=== PATIENT | female | born 1950 | race Caucasian/White ===

== ENCOUNTER 2022-08-06 07:29 | Inpatient (IN) ==
--- NOTE | 2022-07-21 16:27 | PAT Medication Instructions ---
Medication Instructions Date of Service July 21, 2022 Home Medications atorvastatin 40 mg tablet 40 mg PO QAM latanoprost 0.005 % eye drops 1 drp ophthalmic (eye) HS lutein 20 mg capsule 20 mg PO QAM metformin 500 mg tablet 500 mg PO QAM Lactobacillus acidophilus 10 billion cell capsule (Probiotic) 10,000 mmu cells PO QAM calcium carb-ergocalciferol (vit D2) 600 mg calcium-200 unit tablet 1 tab PO QAM albuterol sulfate 90 mcg/actuation aerosol inhaler 1 puff inhalation Q4H PRN Shortness Of Breath aspirin 81 mg tablet,delayed release (Anthony Low Dose Aspirin) 81 mg PO QAM cyclobenzaprine 10 mg tablet 10 mg PO TID PRN muscle spasms fluticasone propionate 50 mcg/actuation nasal spray,suspension 2 spray intranasal QAM losartan 50 mg-hydrochlorothiazide 12.5 mg tablet 1 tab PO QAM fish, borage, flaxseed oils-omega 3,6,9 comb no.1 1,200 mg capsule ([place] 3-6-9) 1 cap PO QAM ipratropium bromide 21 mcg (0.03 %) nasal spray 1 - 2 spray intranasal BID PRN allergies pantoprazole 40 mg tablet,delayed release 40 mg PO BID ASK your prescriber and surgeon aspirin 81 mg tablet,delayed release (Anthony Low Dose Aspirin) 81 mg PO QAM STOP taking 2 weeks before surgery (or as soon as possible if surgery is within 2 weeks) lutein 20 mg capsule 20 mg PO QAM fish, borage, flaxseed oils-omega 3,6,9 comb no.1 1,200 mg capsule ([place] 3-6-9) 1 cap PO QAM DO NOT take the morning of surgery metformin 500 mg tablet 500 mg PO QAM Lactobacillus acidophilus 10 billion cell capsule (Probiotic) 10,000 mmu cells PO QAM calcium carb-ergocalciferol (vit D2) 600 mg calcium-200 unit tablet 1 tab PO QAM cyclobenzaprine 10 mg tablet 10 mg PO TID PRN muscle spasms losartan 50 mg-hydrochlorothiazide 12.5 mg tablet 1 tab PO QAM Take morning of surgery With a small sip of water, OTHERWISE NOTHING TO EAT OR DRINK AFTER MIDNIGHT: atorvastatin 40 mg tablet 40 mg PO QAM albuterol sulfate 90 mcg/actuation aerosol inhaler 1 puff inhalation Q4H PRN Shortness Of Breath (use if needed; please bring rescue inhaler with you to hospital day of surgery if possible) fluticasone propionate 50 mcg/actuation nasal spray,suspension 2 spray intranasal QAM ipratropium bromide 21 mcg (0.03 %) nasal spray 1 - 2 spray intranasal BID PRN allergies (if needed) pantoprazole 40 mg tablet,delayed release 40 mg PO BID Take evening before surgery latanoprost 0.005 % eye drops 1 drp ophthalmic (eye) HS albuterol sulfate 90 mcg/actuation aerosol inhaler 1 puff inhalation Q4H PRN Shortness Of Breath (if needed) cyclobenzaprine 10 mg tablet 10 mg PO TID PRN muscle spasms (if needed) ipratropium bromide 21 mcg (0.03 %) nasal spray 1 - 2 spray intranasal BID PRN allergies (if needed) pantoprazole 40 mg tablet,delayed release 40 mg PO BID Other Notes If you have any questions please call us at [phone] or [phone] or [phone] or [phone]
--- NOTE | 2022-07-27 10:25 | Anesthesiology Consultation ---
Date of Service July 27, 2022 Assessment & Plan (1) Encounter for pre-operative examination: - COVID screening: Per assessment on 07/27: No known COVID-19 positive contacts or current COVID-19 related symptoms. Travel screen negative. Patient vaccinated. At surgeon discretion if preop Covid testing being done. - S/P ESS + septoplasty (07/24/21): Grade view 1, MAC#3, ETT 7.0 at [facility]. No issues noted per post-op anesthesia progress note. - Check BSG AM DOS Chart Review Chart Review: Acceptable Risk for Surgery and Patient seen in Pre Admission Testing Teaching & Discussion Pre-Anesthesia Teaching/Discussion Notes: Instructed NPO after midnight before surgery,except medications with 15 cc of water. Medication instructions provided according to the PAT guidelines. History Surgery Operation Date: 08/10/22 10:05 Proposed Procedures p L4-S1 Decompression and Fusion, Spinal Cord Monitoring - Woo Swift, Height/Weight Height: 5 ft 1 in Weight: 56.2 kg Allergies Allergy/AdvReac Type Severity Reaction Status Date / Time Penicillins Allergy Severe Diffuse Verified 07/27/22 11:14 swelling Sulfa (Sulfonamide Allergy Mild Rash Verified 07/20/22 15:28 Antibiotics) ibandronate sodium AdvReac Mild Gastrointestinal Verified 07/27/22 11:14 [From Ivana] Upset Medications Home Medications Medication Instructions Recorded Confirmed Last Taken atorvastatin 40 mg tablet 40 mg PO QAM 07/07/21 07/20/22 07/23/21 latanoprost 0.005 % eye drops 1 drp ophthalmic (eye) HS 07/07/21 07/20/22 07/23/21 lutein 20 mg capsule 20 mg PO QAM 07/07/21 07/20/22 07/08/21 metformin 500 mg tablet 500 mg PO QAM 07/07/21 07/20/22 07/23/21 Lactobacillus acidophilus 10 10,000 mmu cells PO QAM 07/14/21 07/20/22 07/23/21 billion cell capsule (Probiotic) calcium carb-ergocalciferol (vit 1 tab PO QAM 07/14/21 07/20/22 07/23/21 D2) 600 mg calcium-200 unit tablet albuterol sulfate 90 mcg/actuation 1 puff inhalation Q4H PRN 10/15/21 07/20/22 Unknown aerosol inhaler Shortness Of Breath aspirin 81 mg tablet,delayed 81 mg PO QAM 10/15/21 07/20/22 Unknown release (Anthony Low Dose Aspirin) cyclobenzaprine 10 mg tablet 10 mg PO TID PRN muscle spasms 10/15/21 07/20/22 Unknown fluticasone propionate 50 2 spray intranasal QAM 10/15/21 07/20/22 Unknown mcg/actuation nasal spray,suspension losartan 50 mg-hydrochlorothiazide 1 tab PO QAM 11/30/21 07/20/22 Unknown 12.5 mg tablet fish, borage, flaxseed oils-omega 1 cap PO QAM 07/20/22 07/20/22 Unknown 3,6,9 comb no.1 1,200 mg capsule ([place] 3-6-9) ipratropium bromide 21 mcg (0.03 1 - 2 spray intranasal BID PRN 07/20/22 07/20/22 Unknown %) nasal spray allergies pantoprazole 40 mg tablet,delayed 40 mg PO BID 07/20/22 07/20/22 Unknown release Past Medical History Medical History Arthritis Diabetes mellitus, type 2 NIDDM GERD (gastroesophageal reflux disease) Controlled Glaucoma History of COVID-19 09/2020, sinus infection symptoms Hyperlipidemia Hypertension Prolapsed bladder Exercise / Class Metabolic Activity II 4-5 Yardwork/Stairs/Walk up hill Past Family History Family History Brother Family history of diabetes mellitus Heart disease 2 brothers Hypertension 2 brothers Family hx of colon cancer Sister Family history of diabetes mellitus Heart disease Allergies Hypertension Stroke age 48 Asthma Father Heart disease Other No family history of bleeding disorder Past Surgical History Surgical History History of cataract surgery R/L History of colonoscopy History of endoscopic sinus surgery ESS + septoplasty (07/24/21): Grade view 1, MAC#3, ETT 7.0 at [facility]. No issues noted per post-op anesthesia progress note. History of esophagogastroduodenoscopy (EGD) History of knee surgery Left (+ hardware) History of lumbar surgery History of partial hysterectomy History of thumb surgery Left History of tonsillectomy and adenoidectomy History of tooth extraction Past Anesthesia History No Hx of Anesthesia Complications Sister- slow to wake History of PONV No Hx of PONV and No Hx of Motion Sickness Social History Smoking Status: Former smoker tobacco type: cigarettes Do You Dip or Chew Tobacco: No Smoking End Date: Quit 4 years ago, vaped until 1 year ago Hx Alcohol Use: Yes Alcohol type: wine alcohol intake frequency: holidays/special occasions only Hx Substance Use: No substance use type: does not use Review of Systems Patient denies chest pain, shortness of breath, dyspnea on exertion, fever, chills, cough, wheezing, palpitations. Physical Exam Vital Signs VITALS BP 120/72 P 87 TEMP 98.2 SP02 97%RA RESP 16 PHYSICAL Full cervical extension range of motion. Full TMJ range of motion. TMD 3 finger breaths Mallampati Score 2 Dentition: full dentures upper/lower Lungs: clear throughout to auscultation Cardiac: regular rate and rhythm, distant heart sounds Spine: normal Carotid arteries: negative bruit Extremities: no edema Lab Results Anesthesia Preop Results Results Anesthesia Widget: WBC 5.51 K/ul (4.8-10.8) 07/27/22 Hgb 12.0 g/dl (12.0-16.0) 07/27/22 Hct 35.9 % (34.1-44.9) 07/27/22 Plt 255 K/uL (130-400) 07/27/22 Na 139 mmol/L (136-145) 07/27/22 K 3.8 mmol/L (3.5-5.1) 07/27/22 Cl 104 mmol/L (98-107) 07/27/22 CO2 28 mmol/L (21-32) 07/27/22 BUN 12 mg/dl (6-23) 07/27/22 Creat 0.71 mg/dl (0.6-1.2) 07/27/22 Glucose Level 107 mg/dl (70-99(Fasting)) H 07/27/22 PT 10.4 Seconds (9.0-12.0) 07/27/22 PTT 26.7 Seconds (21.0-31.0) 07/27/22 INR 1.0 (0.9-1.1) 07/27/22 HA1c 7.0 % (4.5-5.6) H 07/27/22 Urine Color Yellow 07/27/22 Urine Appearance Clear (Clear) 07/27/22 Urine pH 6.5 (4.5-7.5) 07/27/22 Urine Specific [place] 1.006 (1.000-1.030) 07/27/22 Urine Protein Negative (Negative) 07/27/22 Urine Glucose (UA) Negative (Negative) 07/27/22 Urine Ketones Negative (Negative) 07/27/22 Urine Blood Negative (Negative) 07/27/22 Urine Nitrite Negative (Negative) 07/27/22 Urine Bilirubin Negative (Negative) 07/27/22 Urine Urobilinogen Negative (Negative) 07/27/22 Urine Leukocyte Esterase Trace (Negative) H 07/27/22 Urine WBC (Auto) 1-5 /hpf (0-5) 07/27/22 Urine RBC (Auto) 0-4 /hpf (0-4) 07/27/22 Urine Hyaline Casts (Auto) 0 /lpf (0-5) 07/27/22 Urine Epithelial Cells (Auto) 10-20 /lpf (0-5) H 07/27/22 Urine Bacteria (Auto) Negative (Negative) 07/27/22 Blood Type A Positive 07/27/22 Antibody Screen NEGATIVE 07/27/22 Testing Electrocardiogram Date: 07/27/22 NSR at 83bpm. Normal ECG. Chest X-Ray Date: 07/27/22 FINDINGS: No lines and tubes are seen. Cardiomegaly is noted. The lungs are clear. No evidence of pleural effusion or pneumothorax. IMPRESSION: No acute chest disease. COVID-19 Risk Screen Screening Information COVID-19 Screen Date: 07/27/22 Exposure 21 Days Family/Household +COVID Last 21 Days: No Exposure 10 Days Any COVID Exposure Last 10 Days: No Symptoms Last 10 Days Experienced COVID Sx Last 10 Days: No + COVID 0-90 Days COVID + in Last 0-90 Days: No
[~2022-08-06 07:29] MED LIST: ACETAMINOPHEN 500 MG TAB PO SCH; ALBUMIN HUMAN 5% 12.5 GM/250 ML VIAL IV ONE; CLINDAMYCIN/D5W 600 MG/50 ML BAG **Premixed Bag IV SCH; CeleBREX 200 MG CAP PO SCH; GABAPENTIN 300 MG CAP PO SCH; LR 15ML/HR IV SCH; SUGAMMADEX SODIUM 200 MG/2 ML VIAL IV ONE
[2022-08-06] MEDS ORDERED: HYDROmorphone INJ 2 MG/ML SYR/VIAL ONE (08:20)
[2022-08-06] MEDS ORDERED: MIDAZOLAM HCL 1 MG/ML 2ML VIAL ONE (08:20)
[2022-08-06] MEDS ORDERED: ePHEDrine sulfate 50 MG/ML AMP IV PRN (08:46)
[2022-08-06] MEDS ORDERED: ATROPINE SULFATE 0.1 MG/ML 10ML SYR IV PRN (08:46)
[2022-08-06] MEDS ORDERED: HYDROmorphone INJ 2 MG/ML SYR/VIAL IV PRN (08:46)
--- NOTE | 2022-08-06 09:25 | History & Physical Bridge Note ---
Date of Service August 06, 2022 History & Physical Bridge Note I have examined the patient, reviewed the History & Physical and in the interval since the performance of the History & Physical I have noted the following changes of clinical significance: no changes noted
[2022-08-06] MEDS ORDERED: BUPIVACAINE/EPINEPHRINE 0.25% 1:200,000 30 ML VIAL ONE (09:26)
--- NOTE | 2022-08-06 09:27 | History & Physical Report ---
Date of Service August 06, 2022 Assessment & Plan (1) Neurogenic claudication due to lumbar spinal stenosis: Plan: L4-S1 decompression fusion History of Present Illness Chief Complaint: Back and bilateral leg pain Primary Care Provider: Maribel Rai MD This is a 72-year-old female presents with chronic persistent back and leg pain after failing course of nonoperative care is here for surgical invention. Allergies Allergy/AdvReac Type Severity Reaction Status Date / Time Penicillins Allergy Severe Diffuse Verified 08/06/22 07:48 swelling Sulfa (Sulfonamide Allergy Mild Rash Verified 08/06/22 07:48 Antibiotics) ibandronate sodium AdvReac Mild Gastrointestinal Verified 08/06/22 07:48 [From Boniva] Upset Home Medications Medication Instructions Recorded Confirmed Type atorvastatin 40 mg tablet 40 mg PO QAM 07/07/21 08/06/22 History latanoprost 0.005 % eye drops 1 drp ophthalmic (eye) HS 07/07/21 08/06/22 History lutein 20 mg capsule 20 mg PO QAM 07/07/21 08/06/22 History metformin 500 mg tablet 500 mg PO QAM 07/07/21 08/06/22 History Lactobacillus acidophilus 10 10,000 mmu cells PO QAM 07/14/21 08/06/22 History billion cell capsule (Probiotic) calcium carb-ergocalciferol (vit 1 tab PO QAM 07/14/21 08/06/22 History D2) 600 mg calcium-200 unit tablet albuterol sulfate 90 mcg/actuation 1 puff inhalation Q4H PRN 10/15/21 08/06/22 History aerosol inhaler Shortness Of Breath aspirin 81 mg tablet,delayed 81 mg PO QAM 10/15/21 08/06/22 History release (Anthony Low Dose Aspirin) cyclobenzaprine 10 mg tablet 10 mg PO TID PRN muscle spasms 10/15/21 08/06/22 History fluticasone propionate 50 2 spray intranasal QAM 10/15/21 08/06/22 History mcg/actuation nasal spray,suspension losartan 50 mg-hydrochlorothiazide 1 tab PO QAM 11/30/21 08/06/22 History 12.5 mg tablet fish, borage, flaxseed oils-omega 1 cap PO QAM 07/20/22 08/06/22 History 3,6,9 comb no.1 1,200 mg capsule ([place] 3-6-9) ipratropium bromide 21 mcg (0.03 1 - 2 spray intranasal BID PRN 07/20/22 08/06/22 History %) nasal spray allergies pantoprazole 40 mg tablet,delayed 40 mg PO BID 07/20/22 08/06/22 History release Past Med/Surg History Medical History Arthritis Diabetes mellitus, type 2 NIDDM GERD (gastroesophageal reflux disease) Controlled Glaucoma History of COVID-19 09/2020, sinus infection symptoms Hyperlipidemia Hypertension Prolapsed bladder Surgical History History of cataract surgery R/L History of colonoscopy History of endoscopic sinus surgery ESS + septoplasty (07/24/21): Grade view 1, MAC#3, ETT 7.0 at [facility]. No issues noted per post-op anesthesia progress note. History of esophagogastroduodenoscopy (EGD) History of knee surgery Left (+ hardware) History of lumbar surgery History of partial hysterectomy History of thumb surgery Left History of tonsillectomy and adenoidectomy History of tooth extraction Family History Brother Family history of diabetes mellitus Heart disease 2 brothers Hypertension 2 brothers Family hx of colon cancer Sister Family history of diabetes mellitus Heart disease Allergies Hypertension Stroke age 48 Asthma Father Heart disease Other No family history of bleeding disorder Social History Smoking Status: Former smoker Tobacco Type: Cigarettes packs per day: 1.5; Years Smoked: 40; Smoking End Date: Quit 4 years ago, vaped until 1 year ago; Second Hand Exposure: No; Do You Dip or Chew Tobacco: No; Tobacco Cessation Education Requested by Patient: No Hx Alcohol Use: Yes Alcohol type: wine Alcohol Intake Frequency Comment: socially Hx Substance Use: No Preferred Language: Romanian Communication Ability: Effective Web Weaver Required: No Beliefs That Will Affect Care: None marital status: Current Living Situation: Alone current occupational status: retired Other Information That Helps Us Care for You: No Feels Safe at Home: Yes Safety Concerns: Feels Safe At This Time Assistive Devices: Denture - Upper, Denture - Lower and Glasses Physical Exam Physical Exam: Patient alert and oriented Heart regular rhythm Lungs clear Results & Data Results & Data ([facility]) Vital Signs (Past 12 Hours) Vital Signs Temp Pulse Resp BP Pulse Ox O2 Del Method 08/06/22 07:53 36.7 C 86 20 162/62 H 100 Room Air
[2022-08-06] MEDS ORDERED: ONDANSETRON INJ 2 MG/ML 2 ML VIAL ONE (10:19)
[2022-08-06] MEDS ORDERED: ROCURONIUM BROMIDE 10 MG/ML 5 ML VIAL IV ONE (10:19)
[2022-08-06] MEDS ORDERED: LIDOCAINE 2% MPF LOCAL 5 ML VIAL INFIL ONE (10:19)
[2022-08-06] MEDS ORDERED: PROPOFOL IV EMULSION 10 MG/ML 20 ML VIAL IV ONE (10:19)
[2022-08-06] MEDS ORDERED: DEXAMETHASONE SOD INJ 4 MG/ML VIAL ONE (10:19)
[2022-08-06] MEDS ORDERED: GLYCOPYRROLATE 0.2 MG/ML VIAL ONE (10:19)
[2022-08-06] MEDS ORDERED: PHENYLEPHRINE 100MCG/ML 5ML SYR ONE (10:36)
[2022-08-06] MEDS ORDERED: FLOSEAL HEMOSTATIC MATRIX 10ML TOP ONE (11:27)
--- NOTE | 2022-08-06 12:08 | Operative Report ---
Post Operative Report Pre & Post Diagnosis Operation Date: 08/06/22 09:20 Pre-Op Diagnosis: Neurogenic claudication due to lumbar spinal stenosis Recurrent lumbar disc herniation Post-Op Diagnosis: Same I identified the patient and participated in the time-out.: Yes Procedure Operation Date: 08/06/22 09:20 Actual Procedures #1 revision decompression with bilateral medial facetectomies and foraminotomies L3-L4, L4-5 and L5-S1. #2 posterior spinal fusion L4-L5 L5-S1. #3 placement posterior instrumentation L4-L5 L5-S1. #4 interbody fusion L4-L5 L5-S1. #5 placement of Spira 11 x 26 mm at L4-5 and 12 x 26 mm at L5-S1. #6 placement locally harvested morselized autograft in the posterior gutters. #7 placement of I factor model V testing advised patient posterior gutters. Surgeon Woo Swift, Winterizer None Estimated Blood Loss 50 Findings Consistent with Post-Op Diagnosis Specimens None Indications This is a 72-year-old female who presents with recurrent disc herniation severe lumbar radiculopathy. Failing course of nonoperative care she is here for surgical invention. Description of Procedure Patient was met with identified informed consent obtained. Patient was then taken to the operative suite underwent a patient placed in a prone position the [place] table top Dontae frame. All bony prominences well-padded eyes inspected to ensure no external pressure placed upon the. This point the lumbar spine was prepped and draped in a sterile fashion. Sharp dissection with assistance of Bovie cautery performed down to and placing the remaining lamina and transverse processes of L4-5 and sacral ala bilaterally. From a caudal cephalad fashion revision complete laminectomy of L5 L4 partial laminectomy of L3 was performed including bilateral medial facetectomies and foraminotomies addressing severe spinal stenosis as well as the recurrent disc herniation at L4-5 and left. After complete decompression pedicle screws were placed in L4-L5 and S1 levels bilaterally with assistance of fluoroscopy and properly sized fred placed. By way of transfer approach and left complete discectomy of L5-S1 was performed endplates curetted to subcortically bone and a 12 x 26 mm spiral cage filled with I factor tapped in position. Then proceeded to L4-L5 and again by way of a transfemoral approach and left complete discectomy performed endplates curetted to subcortical and bone and 11 x 26 mm spiral cage with I factor tapped in position. The rods and locked in final position bilaterally. The transverse processes of L4-5 and sacral ala burred to subcortical bleeding bone. I factor combined with V toss and locally harvested morselized autograft was placed in the posterior gutters. 15 round CAMACHO drain inserted. The incision was then closed with 1 Vicryl the fascia 2-0 Vicryl subcutaneously and 4 Monocryl for fascial closure. Steri-Strip sterile dressings placed. Patient waken taken PACU stable condition. Please note spinal cord monitoring was utilized at the procedure no changes noted. I attest to the content of the Intraoperative Record and any orders documented therein. Any exceptions are noted below.
[2022-08-06] MEDS: fentaNYL citrate 100 MCG/2 ML VIAL IV PRN ×2 (12:24→12:29)
--- NOTE | 2022-08-06 13:24 | Anesthesiology Progress Note ---
Date of Service August 06, 2022 Anesthesia Post Procedure Vital Signs Vital Signs: Temp Pulse Pulse Resp BP Pulse Ox O2 Del Method 08/06/22 13:15 84 13 111/58 L 99 Nasal Cannula 08/06/22 13:05 97.3 F L 85 20 128/70 98 Nasal Cannula 08/06/22 12:55 79 12 130/60 95 Nasal Cannula 08/06/22 12:45 78 12 127/63 96 Nasal Cannula 08/06/22 12:35 82 12 129/62 92 Nasal Cannula 08/06/22 12:25 85 15 131/66 100 Oxymask 08/06/22 12:15 87 15 131/66 99 Oxymask 08/06/22 12:05 90 13 129/61 100 Oxymask 08/06/22 11:59 96.8 F L 92 H 12 119/59 L 99 Oxymask 08/06/22 07:53 98.1 F 86 20 162/62 H 100 Room Air O2 Flow Rate 08/06/22 13:15 2 08/06/22 13:05 2 08/06/22 12:55 2 08/06/22 12:45 2 08/06/22 12:35 2 08/06/22 12:25 4 08/06/22 12:15 4 08/06/22 12:05 6 08/06/22 11:59 6 08/06/22 07:53 Pain Intensity Back: Pain Intensity: 4 Transfer of Care Handoff Completed per policy Notes Mental Status: alert / awake / arousable and participated in evaluation Patient Amnestic to Procedure: Yes Nausea / Vomiting: adequately controlled Pain: adequately controlled Airway Patency, RR, SpO2: stable & adequate BP & HR: stable & adequate Hydration State: stable & adequate Anesthetic Complications: no major complications apparent and Pt Satisfied with anesthetic care
[2022-08-06] MEDS ORDERED: CYCLOBENZAPRINE HCL 10 MG TAB PO PRN (13:38)
[2022-08-06] MEDS ORDERED: METOCLOPRAMIDE HCL INJ 5 MG/ML 2 ML VIAL IV PRN (13:38)
[2022-08-06] MEDS ORDERED: PROMETHAZINE HCL 12.5 MG in SODIUM CHLORIDE 0.9% 50 ML IV PRN (13:38)
[2022-08-06] MEDS ORDERED: ALUMINUM/MAGNESIUM SUSP 30 ML UDC PO PRN (13:38)
[2022-08-06] MEDS ORDERED: LORazepam 0.5 MG TAB PO PRN (13:38)
[2022-08-06] MEDS ORDERED: NALOXONE HCL 0.4 MG/1 ML VIAL/CARP IV PRN (13:38)
[2022-08-06] MEDS ORDERED: hydrOXYzine HCl 25 MG TAB PO PRN (13:38)
[2022-08-06] MEDS ORDERED: ACETAMINOPHEN 500 MG TAB PO PRN (13:38)
[2022-08-06] MEDS ORDERED: bisacodyL 10 MG SUPP PR PRN (13:38)
[2022-08-06] MEDS ORDERED: LORazepam 0.5 MG in SYRINGE 0.25 ML IV PRN (13:38)
[2022-08-06] MEDS ORDERED: traMADol HCL 50 MG TABLET PO PRN (13:38)
[2022-08-06] MEDS ORDERED: ONDANSETRON 4 MG OD TAB PO PRN (13:38)
[2022-08-06] MEDS ORDERED: ALBUTEROL HFA 8 GM INHALER INH PRN (13:38)
[2022-08-06] MEDS ORDERED: ONDANSETRON INJ 2 MG/ML 2 ML VIAL IV PRN (13:38)
[2022-08-06] MEDS ORDERED: MAGNESIUM HYDROXIDE SUSP 30 ML UDC PO PRN (13:38)
[2022-08-06] MEDS ORDERED: diphenhydrAMINE Capsule 25 MG CAP PO PRN (13:38)
[2022-08-06] MEDS ORDERED: HYDROmorphone INJ 0.5 MG/0.5 ML SYR IV PRN (13:38)
[2022-08-06] MEDS ORDERED: SOD PHOSPHATE/SOD BIPHOSPHATE ENEMA 132 ML BTL PR PRN (13:38)
[2022-08-06] MEDS ORDERED: FAMOTIDINE 20 MG TAB PO PRN (13:38)
[2022-08-06] MEDS ORDERED: HYDROmorphone INJ 1 MG/ML SYRINGE IV PRN (13:38)
[2022-08-06] MEDS ORDERED: ACETAMINOPHEN 1,000 MG/100 ML VIAL IV PRN (13:38)
[2022-08-06] MEDS: SODIUM CHLORIDE 0.9% 1000ML 1,000 ML IV SCH (14:05)
--- NOTE | 2022-08-06 15:16 | Fluoroscopy Report ---
FL lumbar spine 2-3V CLINICAL HISTORY: L4-S1 DECOMP/FUSION COMPARISON STUDY: None. FLUOROSCOPY TIME: 27.9 seconds. FLUOROSCOPIC IMAGES: 2 FINDINGS: Fluoroscopy was provided during L4-L5 and L5-S1 discectomies with interbody spacer placemen t. Posterior decompression is noted with bilateral pedicle screw fusion. Hardware is intact. IMPRESSION: Fluoroscopy provided during L4-S1 discectomies, posterior decompression and bilateral pe dicle screw fusion. ACT 112: Negative or not required by law. Electronically signed by: Eugene Weaver M.D. 08/06/2022 3:15 PM
[2022-08-06] MEDS: oxyCODONE HCL IR 5 MG TAB (IMMEDIATE RELEASE) PO PRN ×2 (16:18→22:24)
--- NOTE | 2022-08-06 16:37 | Hospitalist Consultation ---
Date of Consultation August 06, 2022 Assessment & Plan (1) Neurogenic claudication due to lumbar spinal stenosis: Pain management and DVT prophylaxis by primary service (2) Hypertension: resume blood pressure meds. (3) Hyperlipidemia: resume statin (4) Diabetes mellitus, type 2: consult glycemic control will follow for another day, likely will sign off after visit on 08/07 History of Present Illness Reason for Consultation: medical management Attending Physician: Woo Swift DO History of Present Illness 71 [facility] Neurogenic claudication due to lumbar spinal stenosis,Recurrent lumbar disc herniation. Patient is S/P L4-S1 decompression fusion. Medicine team was consulted for medical management. Patient currently has no new symptoms and is feeling well. Allergies Allergy/AdvReac Type Severity Reaction Status Date / Time Penicillins Allergy Severe Diffuse Verified 08/06/22 07:48 swelling Sulfa (Sulfonamide Allergy Mild Rash Verified 08/06/22 07:48 Antibiotics) ibandronate sodium AdvReac Mild Gastrointestinal Verified 08/06/22 07:48 [From [facility]] Upset Home Medications Medication Instructions Recorded Confirmed Type atorvastatin 40 mg tablet 40 mg PO QAM 07/07/21 08/06/22 History latanoprost 0.005 % eye drops 1 drp ophthalmic (eye) HS 07/07/21 08/06/22 History lutein 20 mg capsule 20 mg PO QAM 07/07/21 08/06/22 History metformin 500 mg tablet 500 mg PO QAM 07/07/21 08/06/22 History Lactobacillus acidophilus 10 10,000 mmu cells PO QAM 07/14/21 08/06/22 History billion cell capsule (Probiotic) calcium carb-ergocalciferol (vit 1 tab PO QAM 07/14/21 08/06/22 History D2) 600 mg calcium-200 unit tablet albuterol sulfate 90 mcg/actuation 1 puff inhalation Q4H PRN 10/15/21 08/06/22 History aerosol inhaler Shortness Of Breath aspirin 81 mg tablet,delayed 81 mg PO QAM 10/15/21 08/06/22 History release (Anthony Low Dose Aspirin) cyclobenzaprine 10 mg tablet 10 mg PO TID PRN muscle spasms 10/15/21 08/06/22 History fluticasone propionate 50 2 spray intranasal QAM 10/15/21 08/06/22 History mcg/actuation nasal spray,suspension losartan 50 mg-hydrochlorothiazide 1 tab PO QAM 11/30/21 08/06/22 History 12.5 mg tablet fish, borage, flaxseed oils-omega 1 cap PO QAM 07/20/22 08/06/22 History 3,6,9 comb no.1 1,200 mg capsule (Catherine 3-6-9) ipratropium bromide 21 mcg (0.03 1 - 2 spray intranasal BID PRN 07/20/22 08/06/22 History %) nasal spray allergies pantoprazole 40 mg tablet,delayed 40 mg PO BID 07/20/22 08/06/22 History release Patient History Medical History Arthritis Diabetes mellitus, type 2 NIDDM GERD (gastroesophageal reflux disease) Controlled Glaucoma History of COVID-19 09/2020, sinus infection symptoms Hyperlipidemia Hypertension Prolapsed bladder Surgical History History of cataract surgery R/L History of colonoscopy History of endoscopic sinus surgery ESS + septoplasty (07/24/21): Grade view 1, MAC#3, ETT 7.0 at [facility]. No issues noted per post-op anesthesia progress note. History of esophagogastroduodenoscopy (EGD) History of knee surgery Left (+ hardware) History of lumbar surgery History of partial hysterectomy History of thumb surgery Left History of tonsillectomy and adenoidectomy History of tooth extraction Family History Brother Family history of diabetes mellitus Heart disease 2 brothers Hypertension 2 brothers Family hx of colon cancer Sister Family history of diabetes mellitus Heart disease Allergies Hypertension Stroke age 48 Asthma Father Heart disease Other No family history of bleeding disorder Social History Smoking Status: Former smoker Tobacco Type: Cigarettes packs per day: 1.5; Years Smoked: 40; Smoking End Date: Quit 4 years ago, vaped until 1 year ago; Second Hand Exposure: No; Do You Dip or Chew Tobacco: No; Tobacco Cessation Education Requested by Patient: No Hx Alcohol Use: Yes Alcohol type: wine Alcohol Intake Frequency Comment: socially Hx Substance Use: No Preferred Language: Cameroonian Communication Ability: Effective Gasoline Service Attendant Required: No Beliefs That Will Affect Care: None marital status: / Current Living Situation: Alone current occupational status: retired How many Children do You have: 1 Other Information That Helps Us Care for You: No Feels Safe at Home: Yes Safety Concerns: Feels Safe At This Time Assistive Devices: None Review of Systems Constitutional: no fever Eyes: no blind spots and no discharge Ear, Nose, Mouth, Throat: no ear pain and no tinnitus Respiratory: no cough Cardiovascular: no chest pain Gastrointestinal: no abdominal pain Genitourinary: no dysuria Musculoskeletal: + back pain Integumentary: no rash Neurologic: no gait abnormality Psychiatric: no behavioral changes Endocrine: no fatigue Hematologic / Lymphatic: no easy bleeding Allergy / Immunological: no GI upset with certain foods Physical Exam Constitutional: WD/WN, vitals as above Eyes: PERRL, conjunctivae normal, anicteric sclerae ENMT: external ear and nose normal, oropharynx normal Neck: trachea midline, no thyromegaly Respiratory: normal respiratory effort, lungs clear to auscultation Cardiovascular: RRR, no murmur, no edema Gastrointestinal (Abdomen): normal bowel sounds, soft, nontender, no hepatosplenomegaly Musculoskeletal: no cyanosis or clubbing, extremities motor strength 5/5 Skin: no rashes, warm and dry Neurologic: PERRL, EOMI, accommodation nl, no face palsy, no dysarthria Psychiatric: A+Ox3, euthymic affect Lymphatic: no cervical or axillary lymphadenopathy Results & Data Results & Data ([facility]) Vital Signs (Past 12 Hours) Vital Signs Temp Pulse Pulse Pulse Resp BP Pulse Ox 08/06/22 16:32 36.5 C 92 H 17 115/66 95 08/06/22 15:30 36.4 C L 93 H 18 111/68 90 08/06/22 14:29 36.3 C L 93 H 18 122/72 91 08/06/22 13:15 84 13 111/58 L 99 08/06/22 13:05 36.3 C L 85 20 128/70 98 08/06/22 12:55 79 12 130/60 95 08/06/22 12:45 78 12 127/63 96 08/06/22 12:35 82 12 129/62 92 08/06/22 12:25 85 15 131/66 100 08/06/22 12:15 87 15 131/66 99 08/06/22 12:05 90 13 129/61 100 08/06/22 11:59 36.0 C L 92 H 12 119/59 L 99 08/06/22 07:53 36.7 C 86 20 162/62 H 100 O2 Del Method O2 Flow Rate 08/06/22 16:32 Room Air 08/06/22 15:30 Room Air 08/06/22 14:29 Room Air 08/06/22 13:15 Nasal Cannula 2 08/06/22 13:05 Nasal Cannula 2 08/06/22 12:55 Nasal Cannula 2 08/06/22 12:45 Nasal Cannula 2 08/06/22 12:35 Nasal Cannula 2 08/06/22 12:25 Oxymask 4 08/06/22 12:15 Oxymask 4 08/06/22 12:05 Oxymask 6 08/06/22 11:59 Oxymask 6 08/06/22 07:53 Room Air PG Care Time/CCT Total # of Minutes Spent Total Time Spent with Patient: Total time spent is greater than 50% in coordination of care (as documented) at patient's floor/unit and/or counseling patient: Coding Level of Care Code 22216 Inpt Consult Level 3 Diagnoses Neurogenic claudication due to lumbar spinal stenosis M48.062 Hypertension I10 Hyperlipidemia E78.5 Diabetes mellitus, type 2 E11.9
[2022-08-06] MEDS ORDERED: PHARMACY GLYCEMIC MGMT CONSULT PRN (17:59)
[2022-08-06] MEDS ORDERED: GLUCOSE 40% GEL 15 GM TUBE PO PRN (18:15)
[2022-08-06] MEDS ORDERED: DEXTROSE 50% 50 ML SYRINGE IV PRN (18:15)
[2022-08-06] MEDS ORDERED: CARBOHYDRATES FOR HYPOGLYCEMIA PO PRN (18:15)
[2022-08-06] MEDS ORDERED: GLUCOSE 10 TAB/TUBE PO PRN (18:15)
[2022-08-06] MEDS ORDERED: GLUCAGON FOR INJ 1 MG VIAL IM PRN (18:15)
[2022-08-06] MEDS: CLINDAMYCIN/D5W 600 MG/50 ML BAG IV SCH (18:21)
[2022-08-06] MEDS: INSULIN ASPART PER UNIT SC SCH ×2 (18:22→21:06)
[2022-08-06] MEDS: PANTOprazole 40 MG TAB PO SCH (20:58)
[2022-08-06] MEDS: DOCUSATE SODIUM/SENNA 50/8.6MG TAB PO SCH (20:59)
[2022-08-06] MEDS: LATANOPROST 0.005% OP SOLN 2.5 ML BTL OP SCH ×2 (21:01→22:19)
[2022-08-07] MEDS: SODIUM CHLORIDE 0.9% 1000ML 1,000 ML IV SCH ×2 (00:19→10:42)
[2022-08-07] MEDS: INSULIN ASPART PER UNIT SC SCH ×6 (00:28→21:06)
[2022-08-07] MEDS: CLINDAMYCIN/D5W 600 MG/50 ML BAG IV SCH (02:31)
[2022-08-07] MEDS: POLYETHYLENE (MIRALAX) 17 GM PACK PO SCH ×4 (04:42→23:01)
[2022-08-07 07:21] LABS: Basophils # (auto) 0.01 K/uL (0-0.2); Basophils % (auto) 0.1 %; Eosinophils # (auto) 0.01 K/uL (0-0.50); Eosinophils % (auto) 0.1 %; Hematocrit (blood only) 28.1 % (34.1-44.9); Hemoglobin 9.3 g/dl (12.0-16.0); Immature Granulocytes # (auto) 0.04 K/uL (0.00-0.02); Immature Granulocytes % (auto) 0.4 %; Lymphocytes # (auto) 0.55 K/uL (1.2-3.4); Lymphocytes % (auto) 5.8 %; Mean Corpuscular Hemoglobin 28.5 pg (25.0-34.0); Mean Corpuscular Hgb Conc 33.1 g/dL (32.0-36.0); Mean Corpuscular Volume 86.2 fL (80.0-100.0); Mean Platelet Volume 10.2 fL (9.4-12.3); Monocytes # (auto) 0.83 K/uL (0.24-0.82); Monocytes % (auto) 8.8 %; Neutrophils % (auto) 84.8 %; Platelet Count 221 K/uL (130-400); RDW Standard Deviation 37.5 fL (36.4-46.3); Red Blood Count 3.26 M/uL (3.93-5.22); White Blood Count 9.44 K/ul (4.8-10.8)
[2022-08-07 07:45] LABS: BUN Creatinine Ratio 14.5 (10-20); Calcium 8.6 mg/dl (8.5-10.1); Creatinine Clr Calc Pharmacy 54.8 ml/min; Est GFR (African American) 100.1 ml/min; Est GFR (Non-African American) 86.4 ml/min; Potassium 4.3 mmol/L (3.5-5.1)
--- NOTE | 2022-08-07 08:20 | Orthopedic Progress Note ---
Date of Service August 07, 2022 Assessment & Plan (1) Neurogenic claudication due to lumbar spinal stenosis: Plan: This time initiate physical therapy monitor CAMACHO operatively discharge to rehab or home Tuesday. Admission and Anticipated Discharge Date Admission Date: August 06, 2022 Subjective Back pain controlled leg pain markedly improved Physical Exam Physical Exam: Patient is comfortable. She is sitting in bed. Is constricted testing. Results & Data ([facility]) Vital Signs (Past 12 Hours) Vital Signs Temp Pulse Resp BP Pulse Ox O2 Del Method 08/07/22 04:34 36.5 C 77 16 113/68 95 Room Air 08/07/22 00:29 36.5 C 73 18 103/61 92 Room Air 08/06/22 20:32 36.4 C L 81 16 115/66 94 Room Air
[2022-08-07] MEDS: PANTOprazole 40 MG TAB PO SCH ×2 (08:26→21:00)
[2022-08-07] MEDS: ATORVASTATIN 40 MG TAB PO SCH (08:26)
[2022-08-07] MEDS: ASPIRIN 81 MG ECTAB PO SCH (08:26)
[2022-08-07] MEDS: CALCIUM 600MG + VIT D 400 IU TAB PO SCH (08:26)
[2022-08-07] MEDS: LOSARTAN/HCTZ 50/12.5MG TAB PO SCH (08:26)
[2022-08-07] MEDS: dexAMETHasone 6 MG in SYRINGE 0 ML IV SCH (08:31)
[2022-08-07] MEDS: FLUTICASONE PROPIONATE NA SPR 16 GM BTL SCH (08:31)
[2022-08-07] MEDS: oxyCODONE HCL IR 5 MG TAB (IMMEDIATE RELEASE) PO PRN ×3 (08:37→23:00)
[2022-08-07] MEDS ORDERED: NON-FORMULARY MEDICATION (Lactobacillus Acidophilus [Probiotic] 10 billion cell Capsule) PO SCH (09:00)
[2022-08-07] MEDS ORDERED: Nursing to Pharmacy Communication SCH (10:45)
[2022-08-07] MEDS: metFORMIN HCL 500 MG TAB PO SCH (15:04)
--- NOTE | 2022-08-07 16:57 | Hospitalist Progress Note ---
Date of Service August 07, 2022 Assessment & Plan (1) Neurogenic claudication due to lumbar spinal stenosis: Plan: Patient is doing very well postoperatively Vital signs are stable, pain is controlled Passing gas but no bowel movement yet, tolerating p.o. diet-continue laxatives Continue pain control as per surgeon Scruggs catheter is out and has passed a trial of void Is out of bed to chair and ambulating with a walker-PT/OT consults placed and patient is considering going home rather than rehab CAMACHO drain management as per surgery Continues on a 3-day course of dexamethasone daily (2) Acute blood loss anemia: Plan: Hemoglobin dropped to 9.3 postoperatively from a baseline of 12 Hemodynamically stable, no need for transfusion Follow CBC in the morning (3) Hypertension: Plan: Blood pressures are fairly well controlled Continue home aspirin 81 mg daily, HCTZ/losartan daily (4) Hyperlipidemia: Plan: No acute issues -Continue atorvastatin (5) Diabetes mellitus, type 2: Plan: Pharmacy glycemic control is managing her diabetes while inpatient As an outpatient, her diabetes is very well controlled with a recent hemoglobin A1c of 7.0% With some hyperglycemia here secondary to dexamethasone Continue on NovoLog supplemental insulin, metformin (6) Chronic pansinusitis: Plan: Continue on Flonase nasal spray Is status post sinus surgery earlier this year (7) GERD (gastroesophageal reflux disease): Plan: No acute issues Continue Protonix twice daily Plan DVT prophylaxis-add on SCDs Disposition-continued stay overnight, but possible discharge to home tomorrow or the next day as per orthopedic surgery Hospitalist service will sign off at this time-please feel free to reconsult if new or acute issues arise. Admission and Anticipated Discharge Date Admission Date: August 06, 2022 Subjective Patient reports feeling very well today. Pain is controlled. She is out of bed to the chair. Denies chest pains or shortness of breath, no nausea or vomiting, no abdominal pains. She is passing flatus but no stool yet. She is voiding on her own after Scruggs catheter removed. Denies lightheadedness. Review of Systems Review of Systems: All systems reviewed & are unremarkable except as noted in HPI & below Physical Exam Constitutional: WD/WN, vitals as above Eyes: + anicteric sclerae Neck: trachea midline, no thyromegaly Respiratory: normal respiratory effort, lungs clear to auscultation Cardiovascular: RRR, no murmur, no edema Chest (Breasts): Chest: normal inspection of chest Gastrointestinal (Abdomen): normal bowel sounds, soft, nontender, no hepatosplenomegaly Musculoskeletal: Extremities: extremities normal to inspection; no cyanosis and no clubbing Skin: no rashes, warm and dry Neurologic: moves all extremities and awake; no focal motor deficits Psychiatric: A+Ox3, euthymic affect Lymphatic: no lymphedema Results & Data Results & Data ([facility]) Vital Signs (Past 12 Hours) Vital Signs Temp Pulse Resp BP Pulse Ox O2 Del Method 08/07/22 16:00 36.8 C 84 20 156/71 H 99 Room Air 08/07/22 09:00 36.8 C 106 H 20 129/64 96 Room Air Laboratory Results 08/07/22 08/07/22 08/07/22 Range/Units 12:17 08:20 06:40 WBC (4.8-10.8) K/ul RBC (3.93-5.22) M/uL Hgb (12.0-16.0) g/dl Hct (34.1-44.9) % MCV (80.0-100.0) fL MCH (25.0-34.0) pg MCHC (32.0-36.0) g/dL RDW Std Deviation (36.4-46.3) fL RDW Coeff of Arpan (11.5-14.5) % Plt Count (130-400) K/uL MPV (9.4-12.3) fL Immature Gran % (Auto) % Neut % (Auto) % Lymph % (Auto) % [place] % (Auto) % Eos % (Auto) % Baso % (Auto) % Neut # (Auto) (1.4-6.5) K/uL Lymph # (Auto) (1.2-3.4) K/uL [place] # (Auto) (0.24-0.82) K/uL Eos # (Auto) (0-0.50) K/uL Baso # (Auto) (0-0.2) K/uL Immature Gran # (Auto) (0.00-0.02) K/uL Sodium 137 (136-145) mmol/L Potassium 4.3 (3.5-5.1) mmol/L Chloride 107 (98-107) mmol/L Carbon Dioxide 25 (21-32) mmol/L Anion Gap 5 (3-11) BUN 10 (6-23) mg/dl Creatinine 0.69 (0.6-1.2) mg/dl Est Cr Clr Drug Dosing 54.8 ml/min Est GFR ( Amer) 100.1 ml/min Est GFR (Non-Af Amer) 86.4 ml/min BUN/Creatinine Ratio 14.5 (10-20) Glucose 112 H (70-99(Fasting)) mg/dl POC Glucose 195 H 102 H (70-99) mg/dl Calcium 8.6 (8.5-10.1) mg/dl 08/07/22 08/07/22 08/07/22 Range/Units 06:40 04:32 00:25 WBC 9.44 (4.8-10.8) K/ul RBC 3.26 L (3.93-5.22) M/uL Hgb 9.3 L (12.0-16.0) g/dl Hct 28.1 L (34.1-44.9) % MCV 86.2 (80.0-100.0) fL MCH 28.5 (25.0-34.0) pg MCHC 33.1 (32.0-36.0) g/dL RDW Std Deviation 37.5 (36.4-46.3) fL RDW Coeff of Arpan 12.0 (11.5-14.5) % Plt Count 221 (130-400) K/uL MPV 10.2 (9.4-12.3) fL Immature Gran % (Auto) 0.4 % Neut % (Auto) 84.8 % Lymph % (Auto) 5.8 % [place] % (Auto) 8.8 % Eos % (Auto) 0.1 % Baso % (Auto) 0.1 % Neut # (Auto) 8.00 H (1.4-6.5) K/uL Lymph # (Auto) 0.55 L (1.2-3.4) K/uL [place] # (Auto) 0.83 H (0.24-0.82) K/uL Eos # (Auto) 0.01 (0-0.50) K/uL Baso # (Auto) 0.01 (0-0.2) K/uL Immature Gran # (Auto) 0.04 H (0.00-0.02) K/uL Sodium (136-145) mmol/L Potassium (3.5-5.1) mmol/L Chloride (98-107) mmol/L Carbon Dioxide (21-32) mmol/L Anion Gap (3-11) BUN (6-23) mg/dl Creatinine (0.6-1.2) mg/dl Est Cr Clr Drug Dosing ml/min Est GFR ( Amer) ml/min Est GFR (Non-Af Amer) ml/min BUN/Creatinine Ratio (10-20) Glucose (70-99(Fasting)) mg/dl POC Glucose 117 H 150 H (70-99) mg/dl Calcium (8.5-10.1) mg/dl 08/06/22 08/06/22 08/06/22 Range/Units 20:34 17:03 17:02 WBC (4.8-10.8) K/ul RBC (3.93-5.22) M/uL Hgb (12.0-16.0) g/dl Hct (34.1-44.9) % MCV (80.0-100.0) fL MCH (25.0-34.0) pg MCHC (32.0-36.0) g/dL RDW Std Deviation (36.4-46.3) fL RDW Coeff of Arpan (11.5-14.5) % Plt Count (130-400) K/uL MPV (9.4-12.3) fL Immature Gran % (Auto) % Neut % (Auto) % Lymph % (Auto) % [place] % (Auto) % Eos % (Auto) % Baso % (Auto) % Neut # (Auto) (1.4-6.5) K/uL Lymph # (Auto) (1.2-3.4) K/uL [place] # (Auto) (0.24-0.82) K/uL Eos # (Auto) (0-0.50) K/uL Baso # (Auto) (0-0.2) K/uL Immature Gran # (Auto) (0.00-0.02) K/uL Sodium (136-145) mmol/L Potassium (3.5-5.1) mmol/L Chloride (98-107) mmol/L Carbon Dioxide (21-32) mmol/L Anion Gap (3-11) BUN (6-23) mg/dl Creatinine (0.6-1.2) mg/dl Est Cr Clr Drug Dosing ml/min Est GFR ( Amer) ml/min Est GFR (Non-Af Amer) ml/min BUN/Creatinine Ratio (10-20) Glucose (70-99(Fasting)) mg/dl POC Glucose 253 H 314 H* 329 H* (70-99) mg/dl Calcium (8.5-10.1) mg/dl PG Care Time/CCT Total # of Minutes Spent Total Time Spent with Patient: Total time spent is greater than 50% in coordination of care (as documented) at patient's floor/unit and/or counseling patient: Coding Level of Care Code 66337 Subseq Hosp Care Lvl 2 Diagnoses Neurogenic claudication due to lumbar spinal stenosis M48.062 Acute blood loss anemia D62 Hypertension I10 Hyperlipidemia E78.5 Diabetes mellitus, type 2 E11.9 Chronic pansinusitis J32.4 GERD (gastroesophageal reflux disease) K21.9
[2022-08-07] MEDS: LATANOPROST 0.005% OP SOLN 2.5 ML BTL OP SCH (21:01)
[2022-08-07] MEDS: DOCUSATE SODIUM/SENNA 50/8.6MG TAB PO SCH (21:01)
[2022-08-08] MEDS: oxyCODONE HCL IR 5 MG TAB (IMMEDIATE RELEASE) PO PRN ×3 (06:13→21:10)
[2022-08-08] MEDS: POLYETHYLENE (MIRALAX) 17 GM PACK PO SCH ×3 (06:13→17:37)
[2022-08-08 07:28] LABS: Basophils # (auto) 0.01 K/uL (0-0.2); Basophils % (auto) 0.1 %; Eosinophils # (auto) 0.05 K/uL (0-0.50); Eosinophils % (auto) 0.6 %; Hematocrit (blood only) 30.6 % (34.1-44.9); Hemoglobin 10.2 g/dl (12.0-16.0); Immature Granulocytes # (auto) 0.04 K/uL (0.00-0.02); Immature Granulocytes % (auto) 0.5 %; Lymphocytes % (auto) 11.8 %; Mean Corpuscular Hemoglobin 28.7 pg (25.0-34.0); Mean Corpuscular Hgb Conc 33.3 g/dL (32.0-36.0); Mean Platelet Volume 10.1 fL (9.4-12.3); Monocytes # (auto) 0.82 K/uL (0.24-0.82); Monocytes % (auto) 9.7 %; Neutrophils # (auto) 6.53 K/uL (1.4-6.5); Neutrophils % (auto) 77.3 %; Platelet Count 220 K/uL (130-400); RDW Coefficient of Variation 12.2 % (11.5-14.5); RDW Standard Deviation 38.4 fL (36.4-46.3); Red Blood Count 3.56 M/uL (3.93-5.22); White Blood Count 8.45 K/ul (4.8-10.8)
[2022-08-08 08:02] LABS: Calcium 9.1 mg/dl (8.5-10.1); Potassium 4.1 mmol/L (3.5-5.1)
[2022-08-08 08:08] LABS: BUN Creatinine Ratio 22.2 (10-20); Creatinine Clr Calc Pharmacy 46.7 ml/min; Est GFR (African American) 83.5 ml/min; Est GFR (Non-African American) 72.1 ml/min
[2022-08-08] MEDS: dexAMETHasone 6 MG in SYRINGE 0 ML IV SCH (08:21)
[2022-08-08] MEDS: PANTOprazole 40 MG TAB PO SCH ×2 (08:26→20:09)
[2022-08-08] MEDS: metFORMIN HCL 500 MG TAB PO SCH (08:26)
[2022-08-08] MEDS: ATORVASTATIN 40 MG TAB PO SCH (08:26)
[2022-08-08] MEDS: ASPIRIN 81 MG ECTAB PO SCH (08:26)
[2022-08-08] MEDS: CALCIUM 600MG + VIT D 400 IU TAB PO SCH (08:26)
[2022-08-08] MEDS: LOSARTAN/HCTZ 50/12.5MG TAB PO SCH (08:27)
[2022-08-08] MEDS: FLUTICASONE PROPIONATE NA SPR 16 GM BTL SCH (08:27)
[2022-08-08] MEDS: INSULIN ASPART PER UNIT SC SCH ×4 (09:52→21:08)
--- NOTE | 2022-08-08 10:18 | Orthopedic Progress Note ---
Date of Service August 08, 2022 Assessment & Plan (1) Neurogenic claudication due to lumbar spinal stenosis: Plan: At this time we will continue physical therapy monitor CAMACHO output anticipate discharge tomorrow. Admission and Anticipated Discharge Date Admission Date: August 06, 2022 Subjective Patient's back pain is controlled leg pain markedly improved Physical Exam Physical Exam: Patient is in the chair at the bedside. Is good strength testing. Results & Data ([facility]) Vital Signs (Past 12 Hours) Vital Signs Temp Pulse Pulse Resp BP Pulse Ox O2 Del Method 08/08/22 07:20 36.7 C 78 20 146/66 H 99 Room Air 08/07/22 23:19 36.6 C 75 16 126/63 97 Room Air
[2022-08-08] MEDS: DOCUSATE SODIUM/SENNA 50/8.6MG TAB PO SCH (20:09)
[2022-08-08] MEDS: LATANOPROST 0.005% OP SOLN 2.5 ML BTL OP SCH (20:09)
[2022-08-09] MEDS: oxyCODONE HCL IR 5 MG TAB (IMMEDIATE RELEASE) PO PRN ×3 (01:19→12:48)
[2022-08-09] MEDS: PANTOprazole 40 MG TAB PO SCH (08:10)
[2022-08-09] MEDS: metFORMIN HCL 500 MG TAB PO SCH (08:10)
[2022-08-09] MEDS: CALCIUM 600MG + VIT D 400 IU TAB PO SCH (08:10)
[2022-08-09] MEDS: ATORVASTATIN 40 MG TAB PO SCH (08:11)
[2022-08-09] MEDS: FLUTICASONE PROPIONATE NA SPR 16 GM BTL SCH (08:11)
[2022-08-09] MEDS: dexAMETHasone 6 MG in SYRINGE 0 ML IV SCH (08:11)
[2022-08-09] MEDS: ASPIRIN 81 MG ECTAB PO SCH (08:11)
[2022-08-09] MEDS: LOSARTAN/HCTZ 50/12.5MG TAB PO SCH (08:12)
[2022-08-09] MEDS: INSULIN ASPART PER UNIT SC SCH ×2 (08:22→12:42)
--- NOTE | 2022-08-09 11:31 | Discharge Summary ---
Date of Service August 09, 2022 Admission HPI Per Admitting Provider This is a 72-year-old female presents with chronic persistent back and leg pain after failing course of nonoperative care is here for surgical invention. Principal Diagnosis Lumbar spinal stenosis with neurogenic claudication Discharge Data Allergies Allergy/AdvReac Type Severity Reaction Status Date / Time Penicillins Allergy Severe Diffuse Verified 08/06/22 07:48 swelling Sulfa (Sulfonamide Allergy Mild Rash Verified 08/06/22 07:48 Antibiotics) ibandronate sodium AdvReac Mild Gastrointestinal Verified 08/06/22 07:48 [From [facility]] Upset Consultations 08/06/22 14:43 Consult Hospitalist Routine Procedures Performed Operation Date: 08/06/22 09:20 Actual Procedures p L4-S1 Decompression and Fusion, Spinal Cord Monitoring(Not Applicable) - Woo Swift DO Ordered Studies 08/06/22 09:20 FL lumbar spine 2-3V Routine Hospital Course (1) Neurogenic claudication due to lumbar spinal stenosis: Patient underwent lumbar decompression fusion tolerated well was taken to orthop edic for postoperative. Postop day 1 she was up and ambulating progressed to postop day #2 and 3. Pain well controlled. Strength intact. CAMACHO drain decreasing appropriately. Subsequently discharged to rehab. Discharge orders instructions found the chart for further review. Total Time Total Time Spent Total Time Spent (In Minutes): 20 minutes Discharge Plan Discharge Items Patient Disposition: Transfer Inpatient Rehab Fac Reason For Visit: Other Intervertebral Disc Displacement, Lumbar Reg Discharge Diagnosis: Recurrent lumbar disc herniation with radiculopathy and spinal stenosis Activity: As commented below Non-emergency contact: Primary Care Provider Call non-emergency contact if: you have any medication questions Follow-up/Referrals: Maribel Rai MD [Primary Care Provider] - Diet: Regular Addtl Attending Provider Instructions: ACTIVITY RECOMMENDATIONS: SELF CARE INSTRUCTIONS AFTER THORACIC/LUMBAR FUSIONS 1. You may walk to your tolerance. It is good exercise for your legs and back. Expect some back and intermittent leg aches and pains. 2. You may perform "counter-top" level activities (make a sandwich, june with a project, etc.). 3. No bending or lifting of more than 10 pounds or back twisting of any nature (roll like a log when turning in bed). 4. You may ride in a car for 20-30 minutes at a time. No driving until after your first visit with your doctor. 5. Frequent changes of position and restricting sitting to 30 minutes at a time will help limit the amount of back spasms and stiffness you may experience. 6. You may discontinue the use of ambulatory aids (cane, crutches, etc.) once your strength and confidence allow. 7. You may feed grinder the shower and let water strike your incision when you arrive home at least once daily. Do not take a tub bath, sit in a hot tub or go into a swimming pool until after your first recheck in the office. SPECIAL CARE INSTRUCTIONS: VERY IMPORTANT TO READ AND REVIEW A. Your surgical incision has been closed with a cosmetic suture under the skin that will dissolve in about 6 weeks. In 14 days, you can use a pair of clean scissors and cut the suture that is left outside of the skin at the ends of your incision. 1. The small skin tapes can be removed 7 days after surgery if they have not fallen off by that point. 2. You may keep the wound open to air as much as possible to promote healing after post-op day number 5 unless told otherwise by your doctor. 3. If you think the wound looks like it is becoming infected (redness or worsening drainage) and/or you are experiencing fever, chill or worsening back pain and muscle spasms, contact the office so that we may evaluate you as soon as possible. B. Complications are uncommon, but please contact us if you have any signs or symptoms of: 1. wound infection (fever higher than 102.5 degrees F, redness, separation of wound, drainage, or increasing pain from the incision) 2. blood clots in legs (pain, swelling, redness and warmth in legs) 3. urinary tract infection (fever higher than 102.5 degrees F, burning upon urination or increased frequency of urination) 4. nerve problems (inability to walk on your toes or heels, numbness, loss of bowel or bladder control) 5. any other symptoms that concern you C. Please call the office at if you have any concerns or questions about your operation or recovery. D. No smoking! Smoking drastically decreases the chance of a solid fusion. E. Do not take any anti-inflammatory medications (Indocin, Advil, Motrin, Aspirin, Naprosyn, etc.) as these may inhibit the chance of a solid fusion. Tylenol is okay to take for pain. MANAGING PAIN AFTER SPINAL SURGERY 1. Narcotic medication is intended for short-term use and will be provided for surgical pain. Surgical pain usually lasts for a period of 4-6 weeks. Narcotic medication includes Percocet, Vicodin, Darvocet, Tylenol #3 or Lortab. 2. Longer-term pain is more appropriately treated with non-narcotic medication such as Tylenol ES. 3. Muscle spasm is not appropriately treated with narcotics. Muscle relaxers such as Soma, Flexeril or Skelaxin can be used along with Tylenol ES. 4. Remember that we all live with some "aches and pains". This is not unusual or uncommon after an injury or as we get older. a. Back pain is expected and may include muscle spasms for 4 to 6 weeks after surgery. The pain should gradually improve. If the pain worsens for no apparent reason, please contact the office. b. Intermittent leg pain may also be experienced and should not be concerned about unless it worsens for no apparent reason. If so, please contact the office. 5. We will provide appropriate medication within the normal guidelines of their prescribed use. We will also be very cautious and aware of potential abuse and extended duration of patients' medication needs. a. Pain medications are for your comfort and to assist with sleep and rest so that the tissue can heal. They are not provided in order to return to normal activity and should not be used through the day. To do so or worsening pain at night can result from ongoing tissue damage and development of tolerance to the prescribed medicine. 6. Please allow 2-3 days to process refills. Prescriptions will not be mailed but must be picked up at the office. FOLLOW UP VISIT: Keep your scheduled follow-up appointment. Any questions, please call the office at . Pending Studies at Discharge: No Stand-Alone Forms: My [facility] [employer] Interactive Skilled Items Patient informed of condition?: Yes DNR: No Discharge Level of Care: Acute rehab Communicable Disease: No Discharge Prognosis: Improving Lines: None Urinary Catheter: No Medications and DC Order Prescriptions: New oxycodone 5 mg tablet 5 mg PO Q6H PRN (Reason: pain, severe) Qty: 30 0RF tramadol 50 mg tablet 50 mg PO Q6H PRN (Reason: pain, moderate) Qty: 30 0RF Continued metformin 500 mg tablet 500 mg PO QAM atorvastatin 40 mg tablet 40 mg PO QAM latanoprost 0.005 % drops 1 drp ophthalmic (eye) HS lutein 20 mg capsule 20 mg PO QAM Rx Instructions: give with meal/snack/ON HOLD FOR SURGERY losartan-hydrochlorothiazide 50-12.5 mg tablet 1 tab PO QAM albuterol sulfate 90 mcg/actuation HFA aerosol inhaler 1 puff inhalation Q4H PRN (Reason: Shortness Of Breath) cyclobenzaprine 10 mg tablet 10 mg PO TID PRN (Reason: muscle spasms) aspirin [Anthony Low Dose Aspirin] 81 mg tablet,delayed release (DR/EC) 81 mg PO QAM fluticasone propionate 50 mcg/actuation spray,suspension 2 spray intranasal QAM Rx Instructions: administer into each nostril calcium carbonate-vitamin D2 600 mg calcium- 200 unit Tablet 1 tab PO QAM Probiotic 10 billion cell Capsule 10,000 mmu cells PO QAM pantoprazole 40 mg Tablet,Delayed Release (Dr/Ec) 40 mg PO BID [place] 3-6-9 1,200 mg Capsule 1 cap PO QAM ipratropium bromide 21 mcg (0.03 %) spray,non-aerosol 1 - 2 spray intranasal BID PRN (Reason: allergies) Rx Instructions: Use 1-2 sprays in each nostril 1-2x's/day.; administer into each nostril Discharge Orders: Discharge Order (Routine); Ordered 08/09/22 Ordered By: Woo Swift Admission Data Admit Date/Time: 08/06/22 11:54 Attending Provider: Woo Swift Admit Provider: Woo Swift Primary Care Provider: Maribel Rai Other [facility]: [facility] ; Jarod Kirkland ; Neena Gonzales
== END 2022-08-09 14:37 | DRG 454 ==
LOC: ASU 07:29 → 3W 11:54